=== PATIENT | male | born 1980 | race Caucasian/White ===

== ENCOUNTER 2016-11-23 14:12 | Emergency (ER) | payer BC ==
[2016-11-23 14:18] VITALS: BP 125/83
--- NOTE | 2016-11-23 14:50 | UC ---
Eye Complaint HPI - HPI Summary HPI Summary: ONSET OF RIGHT EYE REDNESS AND IRRITATION THIS MORNING. NO FB SENSATION. NO VISUAL DISTURBANCES. NO PAIN WITH EOM. NO RECENT ILLNESS. 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 DOES NOT WEAR GLASSES OR CONTACTS. - History of Current Complaint Chief Complaint: UCEye Stated Complaint: EYE COMPLAINT Time Seen by Provider: 11/23/16 14:43 Hx Obtained From: Patient Onset/Duration: Gradual Onset, Lasting Hours, Still Present Timing: Constant Severity Initially: Moderate Severity Currently: Moderate Pain Intensity: 0 Pain Scale Used: 0-10 Numeric Location of Injury: Conjunctiva Aggravating Factor(s): Nothing Alleviating Factor(s): Nothing Associated Signs And Symptoms: Positive: Drainage (Clear). Negative: Vision Impairment Bilateral, Vision Impairment Right - Allergies/Home Medications Allergies/Adverse Reactions: Allergies Allergy/AdvReac Type Severity Reaction Status Date / Time No Known Allergies Allergy Verified 11/23/16 14:18 Home Medications: Home Medications Albuterol HFA INHALER* [Ventolin HFA Inhaler*] 1 puff INH Q4HR PRN 11/23/16 [ History Confirmed 11/23/16] Triamcinolone 0.1% CREAM (NF) [Kenalog 0.1% Cream (NF)] 1 applic TOPICAL DAILY PRN 11/23/16 [History Confirmed 11/23/16] PMH/Surg Hx/FS Hx/Imm Hx Respiratory History: Asthma - Surgical History Surgical History: Yes Surgery Procedure, Year, and Place: Back Surgery 05/2014 - Family History Known Family History: Negative: Hypertension, Diabetes - Social History Alcohol Use: Weekly Alcohol Amount: couple drinks per week Substance Use Type: None Smoking Status (MU): Never Smoked Tobacco - Immunization History Most Recent Influenza Vaccination: NONE Most Recent Tetanus Shot: UNKNOW Most Recent Pneumonia Vaccination: NONE Review of Systems Constitutional: Negative Eyes: Drainage, Eye Redness Respiratory: Negative Cardiovascular: Negative Gastrointestinal: Negative All Other Systems Reviewed And Are Negative: Yes Physical Exam Triage Information Reviewed: Yes Appearance: Well-Appearing, No Pain Distress, Well-Nourished Vital Signs: Initial Vital Signs Temp 98.2 F 11/23/16 14:13 Pulse 65 11/23/16 14:13 Resp 16 11/23/16 14:13 BP 125/83 11/23/16 14:13 Pulse Ox 98 07/01/17 14:13 Eyes: Positive: Conjunctiva Inflamed - RIGHT EYE, Discharge - MINIMAL CLEAR D/C RIGHT EYE, Other: - PERRL, EOMI ENT: Positive: Hearing grossly normal Neck: Positive: Supple Respiratory: Positive: No respiratory distress, No accessory muscle use Cardiovascular: Positive: Pulses Normal Abdomen Description: Positive: Soft Musculoskeletal: Positive: No Edema Neurological: Positive: Alert Psychological: Positive: Age Appropriate Behavior Skin: Negative: rashes Eye Complaint Course/Dx - Differential Dx/Diagnosis Provider Diagnoses: RIGHT EYE IRRITANT CONJUNCTIVITIS Discharge - Discharge Plan Condition: Stable Disposition: HOME Prescriptions: Ciprofloxacin 0.3% OPTH.RODRÍGUEZ* [Cipro 0.3% Opth*] 1 drop RIGHT EYE Q4H #1 btl Patient Education Materials: Conjunctivitis (ED) Referrals: Hawk Moreno MD [Primary Care Provider] - If Needed Additional Instructions: IRRITANT CONJUNCTIVITIS: You have an irritation to your eye. Conjunctivitis causes redness, mild discomfort, itching, and mattering on the eyelids. Your symptoms are likely due to irritation from a foreign body that was spontaneously expelled from your eye. There was no sign of persistent foreign body or corneal abrasion on exam today. Should you develop increasing eye pain, severe swelling, decreased vision, or fail to improve as expected, please see an eye doctor [place]. Chemosis is a collection of serous fluid within the substance of the conjunctiva and is a nonspecific sign of conjunctival irritation. Chemosis can be seen in a wide range of conditions affecting the eye and orbit, including trauma, allergic reaction, inflammation, and infection. Treatment depends on the underlying cause.
[2016-11-23] MEDS ORDERED: Fluorescein Sodium TOPICAL* 1 MG TEST OPHTHALMIC ONE (14:52)
[2016-11-23] MEDS ORDERED: BSS OPTH.SOL* BTL OPHTHALMIC ONE (14:54)
== END 2016-11-23 15:18 | disposition home or self-care (01) ==
LOC: UCEAST 14:12
DX: H10.89 Other conjunctivitis (principal); J45.909 Unspecified asthma, uncomplicated
CPT/HCPCS: 99212; A9270-GY; G0463

== ENCOUNTER 2023-01-08 07:18 | Observation (INO) ==
[~2023-01-08 07:18] MED LIST: Buffered Lidocaine 1% SYRIN 1 ml INTRADERM ONE; Lactated Ringers 1000 ml BAG 1,000 ML IV SCH
[2023-01-08] MEDS ORDERED: ceFAZolin 2 GM PREMIX 2 GM/50 ML BAG ONE (07:35)
[2023-01-08] MEDS ORDERED: Chlorhexidine MOUTHWASH 0.12% 15 ML UDC ONE (07:35)
[2023-01-08] MEDS ORDERED: Lidocaine 2% PF 5 ML VIAL ONE (08:36)
[2023-01-08] MEDS ORDERED: Midazolam 2 mg/2 ml VIAL 1 mg/ml 2 ml VIAL (2 mg) ONE (08:36)
[2023-01-08] MEDS ORDERED: Rocuronium 50 mg VIAL 10 mg/ml 5 ml VIAL (50 mg) ONE (08:36)
[2023-01-08] MEDS ORDERED: fentaNYL 100 mcg/2 ml 50 MCG/ML VIAL ONE (08:36)
[2023-01-08] MEDS ORDERED: Propofol 10 MG/ML 20 ML BTL ONE (08:38)
[2023-01-08] MEDS ORDERED: Thrombin 5,000 UNITS 1 APPLIC KIT - topical use - TOPICAL ONE (09:12)
[2023-01-08] MEDS ORDERED: Lidocaine 1% w EPI 1:200,000 SDV 30 ML VIAL ONE (09:12)
[2023-01-08] MEDS ORDERED: ceFAZolin VIAL VIAL ONE (09:13)
[2023-01-08] MEDS ORDERED: Gelfoam Sponge SIZE 100 SPONGE ONE (09:13)
[2023-01-08] MEDS ORDERED: Acetaminophen IV 1 GM/100ML 1,000 MG/100 ML BAG IV ONE (10:05)
[2023-01-08] MEDS ORDERED: Ondansetron 4 mg VIAL 2 MG/ML 2 ml VIAL ONE (10:05)
[2023-01-08] MEDS ORDERED: Dexamethasone IV 4 MG/ML VIAL 1 ml VIAL ONE (10:05)
[2023-01-08] MEDS ORDERED: Ondansetron 4 mg VIAL 2 MG/ML 2 ml VIAL IV PRN ×2 (10:46→11:11)
[2023-01-08] MEDS ORDERED: Acetaminophen IV 1 GM/100ML 1,000 MG/100 ML BAG IV PRN (10:46)
[2023-01-08] MEDS ORDERED: Naloxone 0.4 mg VIAL 0.4 mg/ml 1 ml VIAL IV PRN (10:46)
[2023-01-08] MEDS ORDERED: HYDROmorphone 1 MG/1 ML SYRINGE IV PRN (10:46)
[2023-01-08] MEDS ORDERED: fentaNYL 100 mcg/2 ml 50 MCG/ML VIAL IV PRN (10:46)
[2023-01-08] MEDS ORDERED: Albuterol HFA INHALER 8 gm MDI INH PRN (11:15)
[2023-01-08] MEDS ORDERED: Lactated Ringers 1000 ml BAG 1,000 ML IV SCH (12:00)
[2023-01-08] MEDS ORDERED: Triamcinolone 0.025% OINT 15 GM TUBE TOPICAL PRN (14:11)
[2023-01-09 05:57] VITALS: BP 112/62
== END 2023-01-09 10:16 | disposition home or self-care (01) ==
LOC: SSU 07:18 → OR 07:18
PROVIDERS: ADMIT Neurological Surgery; ATTEND Neurological Surgery